=== PATIENT | female | born 1945 | race Caucasian/White ===

== ENCOUNTER 2021-07-24 22:57 | Observation (INO) | payer OTHER ==
--- OUTSIDE RECORDS SUMMARY | 2021-07-24 23:00 | XMS REPORT | Continuity of Care Document ---
:1945 Author Organization [facility] t Address [address] [place] [address] Care Team Providers Name Role Phone Olivia Last Attending Clinician Unavailable Page Attending Clinician Unavailable RADHA Attending Clinician Unavailable RADHA Admitting Clinician Unavailable Payers Payer Name Policy Type Policy Number Effective Date Expiration Date S ource Problems This patient has no known problems. Allergies, Adverse Reactions, Alerts Allergy Allergy Status Severity Reaction(s) Onset Inactive Treating Comm ents Source Name Type Date Date Clinician opioids Adverse Active difficulty [facility] beathing/Lg. Ivette kes - fluid filled Jose mercedes [facility] Losartan Adverse Active rash [facility] Medications Ordered Filled Start Stop Current Ordering Indication Dosage Frequency Signature Comments Components Source Medication Medication Date Date Medication? Clinician (SIG) Name Name Amlodipine Amlodipine 2020-0 Yes Angelica [address] [facility] Besylate Besylate 2-07 Millender Ivette kes - 00:00: [facility] Olmesartan Olmesartan 2018-05 Yes Angelica [address] [facility] Medoxomil Medoxomil 0-25 Millender [facility] Ciprofloxac Ciprofloxac Yes Angelica [address] [facility] in HCl in HCl [facility] Triamcinolo Triamcinolo Yes Angelica [address] [facility] ne ne Millender applicatio Luke s - Acetonide Acetonide n to [facility] affected l [facility] Calcium Calcium Yes Angelica [address] [facility]ender [facility] Ipratropium Ipratropium Yes Angelica USE [address] [facility] [place] Millender SPRAYS Ivette kes - INTO EACH Memoria NOSTRIL 4 l TIMES A Outpati DAY ent NEEDED FOR Clinics NASAL DRAINAGE Telmisartan Telmisartan Yes Angelica 1/[address] [facility] Immunizations Ordered Filled Immunization Date Status Comments [facility] e Immunization Name Name FLUZONE HIGH DOSE FLUZONE HIGH DOSE 2019-02-[address] [facility] OVER 65 OVER 65 00:00:00 [facility] Procedures This patient has no known procedures. Encounters Start End Encounter Admission Attending Care Care Encounter Source Date/Time Date/Time Type Type Clinicians Facility Department ID 2021-06-01 Outpatient Last, [facility] [id number] [facility] 13:21:10 Hero [id number] [facility] 2021-06-01 [facility] Ber[facility] [id number] [facility] 13:20:35 Hero [id number] [facility] 2021-06-01 [facility] [id number] [facility] [address] 13:08:42 [id number] [facility] 2021-06-01 [facility] [id number] [facility] [address] 13:06:36 [id number] [facility] 2021-06-01 Outpatient Sotoender, [facility] [id number] [facility] [address] 11:36:32 Angelica [id number] [facility] 2021-06-01 Outpatient Page, [facility] [id number] 11:27:34 Angelica [id number] [facility] 2021-06-01 Outpatient Page, [facility] [id number] 11:06[facility]28 Angelica [id number] [facility] 2021-02-24 2021-02-24 Outpatient [facility] [id number] [place] 05:11:00 05:11[place]00 [place] [id number] [facility] 2021-02-08 2021-02-08 [facility] [id number] [facility] 2021-02-03 2021-02-03 [facility] [id number] [facility] 2020-11-05 2020-11-05 [facility] [id number] [facility] 2020-11-03 2020-11-03 [facility] [id number] [facility] 2020-10-05 2020-10-05 [facility] [id number] 2020-07-15 2020-07-15 Outpatient [facility] [id number] [place] 05:57:00 05:57[place] [id number] [facility] 2020-07-13 2020-07-13 Outpatient [facility] [id number] [place] 03:09:00 03:09:[place] [id number] [facility] 2020-04-08 2020-04-08 Outpatient [facility] [id number] [place] 03:10:00 03:10:[place] [id number] [facility] 2020-04-07 2020-04-07 Outpatient [facility] [id number] [place] 11:57:00 11:57:[place] [id number] [facility] 2020-02-18 2020-02-18 [facility] [id number] [facility] 2020-02-09 2020-02-09 [facility] [id number] [facility] 2019-12-16 2019-12-16 [facility] [id number] 15:00:00 15:00:[address] [facility] Clin[facility] 2019-12-11 2019-12-11 [facility] [id number] 16[facility]20:00 16:20:00 [facility] Medicine Outpati ent Clinics 2019-12-11 2019-12-11 [facility] [id number] 11:23:00 11:23:[address] [facility] Clin[facility] 2019-11-03 2019-11-03 [facility] [id number] 02:27:00 02:27:[address] [facility] Clin[facility] 2019-10-27 2019-10-27 [facility] [id number] 11:58:00 11:58:[address] [facility] Clin[facility] 2019-10-24 2019-10-24 [facility] [id number] [address] 16[facility]00:00 16:00:[address] [facility] Clinics 2019-10-13 2019-10-13 Outpatient NENO [facility] [id number] [place] 10:14:00 10:14:[place] [id number] da [facility] h Program 2019-10-05 2019-10-05 [facility] [id number] 22:14:00 22:14:[address] [facility] Medicine Outpat[facility] Clinics 2019-10-03 2019-10-03 [facility] [id number] 08:00:00 08:00:00 [facility] Medicine Outpati ent Clinics 2019-10-01 2019-10-01 Outpatient FERGUSON_MADHU [facility]OP [facility] [id number] [place] 04:27:00 04:27:[place] [id number] [facility] 2019-10-01 2019-10-01 Outpatient [facility]ERGUSON_MADHU [facility]OP [facility] [id number] [place] 04:27:00 04:27:[place] [id number] [facility] 2019-06-13 2019-06-13 [facility] [id number] 15:45:00 15:45:00 [facility] Medicine l Medicine Outpati ent Clinics 2019-02-28 2019-02-28 [facility] [id number] [facility] 16:00:00 16:00:00 [facility] Medicine l Medicine Outpati ent Clinics 2018-11-01 2018-11-01 [facility] [id number] 13:20:00 13:20:00 [facility] Medicine l Medicine Outpati ent Clinics 2018-08-20 2018-08-20 [facility] [id number] 15:02:00 15:02:00 [facility] Medicine l Medicine Outpati ent Clinics 2018-08-20 2018-08-20 [facility] [id number] 12:02:00 12:02:00 [facility] Medicine l Medicine Outpati ent Clinics 2018-06-11 2018-06-11 [facility] [id number] 20:42:00 20:42:00 [facility] Medicine l Medicine Outpati ent Clinics 2018-06-07 2018-06-07 [facility] [id number] 09:51:00 09:51:00 [facility] Medicine l Medicine Outpati ent Clinics 2018-06-06 2018-06-06 [facility] [id number] 15:00:00 15:00:00 [facility] Outpati ent Clinics 2017-12-25 2017-12-25 [facility] [id number] [address] 13:00:00 13:00:00 [facility] Outpati ent Clinics 2017-10-10 2017-10-10 [facility] [id number] 14:30:00 14:30:00 [facility] Outpati ent Clinics 2017-09-27 2017-09-27 [facility] [id number] 08:24:00 08:24:00 [facility] Outpat[facility] ent Clinics 2017-09-25 2017-09-25 [facility] [id number] 14:00:00 14:00:00 [facility] Results This patient has no known results.
--- NOTE | 2021-07-25 00:19 | ER ---
Nurse's Notes [facility] Name: Asiya Cabrales Age: 75 yrs Sex: Female : 1945 Arrival Date: 07/24/2021 Time: 23:02 Bed 6 Private MD: Hero Last Diagnosis: Hypertensive urgency;Dizziness Presentation: 07/24 23:13 Chief complaint: Patient states: Dizzy, headache - High blood pressure X 3 DAYS. ld1 Coronavirus screen: At this time, the client does not indicate any symptoms associated with coronavirus-19. Ebola Screen: No symptoms or risks identified at this time. Initial Sepsis Screen: Does the patient meet any 2 criteria? No. Patient's initial sepsis screen is negative. Does the patient have a suspected source of infection? No. Patient's initial sepsis screen is negative. Risk Assessment: Do you want to hurt yourself or someone else? Patient reports no desire to harm self or others. Onset of symptoms was July 24, 2021. 23:13 Method Of Arrival: Ambulatory ld1 23:13 Acuity: VANNA 3 ld1 Triage Assessment: 23:17 General: Appears in no apparent distress. comfortable, Behavior is calm, cooperative, ld1 appropriate for age. Pain: Denies pain. EENT: No signs and/or symptoms were reported regarding the EENT system. Neuro: Level of Consciousness is awake, alert, obeys commands, Oriented to person, place, time, situation, Appropriate for age. Cardiovascular: Reports None Capillary refill < 3 seconds Patient's skin is warm and dry. Rhythm is regular. Respiratory: Airway is patent Respiratory effort is even, unlabored, Respiratory pattern is regular, symmetrical. GI: Abdomen is flat, non-distended. : No signs and/or symptoms were reported regarding the genitourinary system. Derm: No signs and/or symptoms reported regarding the dermatologic system. Musculoskeletal: No signs and/or symptoms reported regarding the musculoskeletal system. 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 - Social history:: Smoking status: Patient denies any tobacco usage or history of. Patient/guardian denies using alcohol. Screenin/21 00:30 Abuse screen: Denies threats or abuse. Denies injuries from another. Nutritional as6 screening: No deficits noted. Tuberculosis screening: No symptoms or risk factors identified. Fall Risk None identified. Assessment: 00:29 General: Appears in no apparent distress. comfortable, Behavior is calm, cooperative. as6 Pain: Denies pain. Neuro: Level of Consciousness is awake, alert, obeys commands, Oriented to person, place, time, situation. Cardiovascular: Capillary refill < 3 seconds Patient's skin is warm and dry. Respiratory: Airway is patent Trachea midline Respiratory effort is even, unlabored, Respiratory pattern is regular, symmetrical. Vital Signs: 07/24 23:13 BP 209 / 105; Pulse 93; Resp 18; Temp 98.1(TE); Pulse Ox 99% on R/A; Weight 77.11 kg; ld1 Height 5 ft. 6 in. (167.64 cm); Pain 0/10; 07/25 00:30 BP 174 / 102; Pulse 73; Resp 19 S; Pulse Ox 97% on R/A; as6 07/24 23:13 Body Mass Index 27.44 (77.11 kg, 167.64 cm) ld1 ED Course: 07/24 23:02 Patient arrived in ED. es 23:02 Hero Last DO is Private Physician. es 23:06 Todd Laboy DO is Attending Physician. ms3 23:17 Triage completed. ld1 23:17 Arm band placed on right wrist. ld1 23:40 Patrick Seymour, BEBO is Primary Nurse. as6 07/25 00:15 Missed attempt(s): 22 gauge in right forearm. Bleeding controlled, band aid applied, as6 catheter tip intact. 00:18 Ajay Landon MD is Hospitalizing Provider. ms3 00:20 Inserted saline lock: 22 gauge in right hand, using aseptic technique. Blood collected. as6 00:27 SARS-COV-2 RT PCR Sent. as6 00:27 Basic Metabolic Panel Sent. as6 00:27 CBC with Diff Sent. as6 00:27 Troponin HS Sent. as6 00:31 Placed in gown. Bed in low position. Call light in reach. Side rails up X2. Adult w/ as6 patient. towel sewer on. Pulse ox on. NIBP on. 00:31 No provider procedures requiring assistance completed. Patient admitted, IV remains in as6 place. 08:36 Primary Nurse role handed off by Patirck Seymour, BEBO calero Administered Medications: 00:17 Drug: Norvasc (amlodipine) 5 mg Route: PO; as6 01:04 Follow up: Response: No adverse reaction as6 Outcome: 00:18 Decision to Hospitalize by Provider. ms3 00:31 Admitted to ER Hold. Please see [facility] for further documentation. as6 00:31 Condition: stable 00:31 Instructed on the need for admit. 09:58 Patient left the ED. bazan Signatures: Misty Andres, Todd Fowler DO DO ms3 Ibis Marrufo RN RN ld1 Patrick Seymour RN RN as6 Au-Stager, BEBO Serrano RN bazan Corrections: (The following items were deleted from the chart) 07/24 23:18 23:17 Allergies: No Known Allergies; ld1 ld1
--- NOTE | 2021-07-25 00:19 | EDPHYS ---
Physician Documentation [facility] Name: Asiya Cabrales Age: 75 yrs Sex: Female : 1945 Arrival Date: 07/24/2021 Time: 23:02 Bed 6 Private MD: Berhane [facility] ED Physician Todd Laboy HPI: 07/25 01:16 This 75 yrs old Female presents to ER via Ambulatory with complaints of High Blood ms3 Pressure. 01:16 The patient has elevated blood pressure and discovered this at home, with a home ms3 device. Onset: The symptoms/episode began/occurred today. Modifying factors:. Associated signs and symptoms: The patient has no apparent associated signs or symptoms. 35-year-old female with past medical history of hypertension presents for hypertension. Patient states she was seen at an emergency department on Sunday and work-up was negative at the time. Patient denies pain at this time. Patient denies alleviating or inciting factors. Patient denies fevers, chills, nausea, vomiting, diaphoresis, chest pain, shortness of breath.. 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 - Social history:: Smoking status: Patient denies any tobacco usage or history of. Patient/guardian denies using alcohol. ROS: 07/25 01:16 Constitutional: Negative for fever, and chills. ENT: Negative for injury, pain, and ms3 discharge, Neck: Negative for injury, pain, and swelling, Cardiovascular: Negative for chest pain, and palpitations. Respiratory: Negative for shortness of breath, cough, wheezing, and pleuritic chest pain, Abdomen/GI: Negative for abdominal pain, nausea, vomiting, diarrhea, and constipation, MS/Extremity: Negative for injury and deformity, Skin: Negative for injury, rash, and discoloration, Neuro: Negative for headache, weakness, numbness, tingling. All other systems are negative. Exam: 00:06 ECG was reviewed by the Attending Physician. ms3 01:16 Constitutional: This is a well developed, well nourished patient who is awake, alert, ms3 and in no acute distress. Head/Face: Normocephalic, atraumatic. Eyes: Pupils equal round and reactive to light, extra-ocular motions intact. Lids and lashes normal. Conjunctiva and sclera are non-icteric and not injected. Periorbital areas with no swelling, redness, or edema. ENT: Nares patent. No nasal discharge, no septal abnormalities noted. Tympanic membranes are normal and external auditory canals are clear. Oropharynx with no redness, swelling, or masses, exudates, or evidence of obstruction, uvula midline. Mucous membranes moist. Neck: Trachea midline, no cervical lymphadenopathy. Supple, full range of motion without nuchal rigidity, or vertebral point tenderness. No Meningismus. Chest/axilla: Normal chest wall appearance and motion. Nontender with no deformity. Cardiovascular: Regular rate and rhythm with a normal S1 and S2. No gallops, murmurs, or rubs. Normal PMI, no JVD. No pulse deficits. Respiratory: Lungs have equal breath sounds bilaterally, clear to auscultation and percussion. No rales, rhonchi or wheezes noted. No increased work of breathing, no retractions or nasal flaring. Abdomen/GI: Soft, non-tender, with normal bowel sounds. No distension or tympany. No guarding or rebound. No evidence of tenderness throughout. Skin: Warm, dry with normal turgor. Normal color with no rashes, no lesions, and no evidence of cellulitis. MS/ Extremity: Pulses equal, no cyanosis. Neurovascular intact. Full, normal range of motion. Vital Signs: 07/24 23:13 BP 209 / 105; Pulse 93; Resp 18; Temp 98.1(TE); Pulse Ox 99% on R/A; Weight 77.11 kg; ld1 Height 5 ft. 6 in. (167.64 cm); Pain 0/10; 07/25 00:30 BP 174 / 102; Pulse 73; Resp 19 S; Pulse Ox 97% on R/A; as6 07/24 23:13 Body Mass Index 27.44 (77.11 kg, 167.64 cm) ld1 MDM: 07/24 23:34 ED course: Discussed patient's elevated blood pressure with Dr Dickey and he would like ms3 patient admitted to the hospitalist service. . 23:45 Patient medically screened. ms3 07/25 01:11 Differential diagnosis: hypertensive crisis, Malignant HTN. Data reviewed: vital signs, ms3 nurses notes, lab test result(s), EKG, radiologic studies. Counseling: I had a detailed discussion with the patient and/or guardian regarding: the historical points, exam findings, and any diagnostic results supporting the discharge/admit diagnosis, lab results, radiology results, the need for further work-up and treatment in the hospital. ED course: Discussed case with MAHIN Guzmán, and he accepts patient to Dr Landon.. 07/24 23:49 Order name: COVID-19 SARS RT PCR (Document "Date of Onset" if Symptomatic) ms3 07/24 23:50 Order name: Basic Metabolic Panel; Complete Time: 01:19 ms3 07/24 23:50 Order name: CBC with Diff; Complete Time: 01:19 ms3 07/24 23:50 Order name: Troponin HS; Complete Time: 01:19 ms3 07/24 23:50 Order name: SARS-COV-2 RT PCR EDMS 07/25 04:54 Order name: Troponin High Sensitivity EDID 07/24 23:50 Order name: EKG; Complete Time: 23:50 ms3 07/24 23:50 Order name: Cardiac monitoring; Complete Time: 23:56 ms3 07/24 23:50 Order name: EKG - Nurse/Tech; Complete Time: 00:26 ms3 07/24 23:50 Order name: IV Saline Lock; Complete Time: 00:27 ms3 07/24 23:50 Order name: Labs collected and sent; Complete Time: 00:27 ms3 07/24 23:50 Order name: O2 Per Protocol; Complete Time: 23:56 ms3 07/25 04:54 Order name: Thyroid Stimulating Hormone EDID 07/24 23:50 Order name: O2 Sat Monitoring; Complete Time: 23:56 ms3 EC:06 Rate is 76 beats/min. Rhythm is regular. QRS [place] is Normal. PA interval is normal. ms3 Clinical impression: NSR w/ Non-specific ST/T Changes. Interpreted by me. Administered Medications: 00:17 Drug: Norvasc (amlodipine) 5 mg Route: PO; as6 01:04 Follow up: Response: No adverse reaction as6 Disposition Summary: 07/25/21 00:18 Hospitalization Ordered Hospitalization Status: Observation ms3 Provider: Ajay Landon ms3 Condition: Stable ms3 Problem: new ms3 Symptoms: are unchanged ms3 Bed/Room Type: Standard ms3 Location: [facility] ER HOLD(07/25/21 00:28) cg Room Assignment: ERHOLD-(07/25/21 00:28) cg Diagnosis - Hypertensive urgency ms3 - Dizziness ms3 Forms: - Medication Reconciliation Form ms3 - SBAR form ms3 Signatures: Dispatcher [employer] Carmen Arceo RN RN cg Todd Laboy DO DO ms3 Ibis Marrufo RN RN ld1 Patrick Seymour RN RN as6 Corrections: (The following items were deleted from the chart) 07/24 23:18 23:17 Allergies: No Known Allergies; ld1 ld1 07/25 00:28 00:18 Telemetry/MedSurg (observation) ms3 cg 00: 00:18 ms3 cg
[2021-07-25 00:53] LABS: Absolute Lymphocytes (CBC) 1.6 K/uL (0.7-4.9); Hematocrit 40.3 % (36.0-45.0); Lymphocytes % 24.2 % (15.3-44.8); MPV 7.8 fL (7.6-11.3); RBC Red Blood Cell Count 4.32 M/uL (3.86-4.86)
[2021-07-25 01:06] LABS: Troponin High Sensitivity 6.2 pg/mL (<58.9)
[2021-07-25 01:09] LABS: Potassium 4.2 mmol/L (3.5-5.1)
--- NOTE | 2021-07-25 01:20 | P.HP ---
Certification for Inpatient Patient admitted to: Observation With expected LOS: <2 Midnights Patient will require the following post-hospital care: None Practitioner: I am a practitioner with admitting privileges, knowledge of patient current condition, hospital course, and medical plan of care. Services: Services provided to patient in accordance with Admission requirements found in Title 42 Section 412.3 of the Code of Federal Regulations Patient History Date of Service: 07/25/21 Reason for admission: Hypertensive urgency History of Present Illness: 75-year-old female with history of hypertension presents emergency department with elevated blood pressure for the past 3 days. Patient was seen at another ER recently for similar complaint given hydralazine x2 and discharged home without adjustment to her medication. Patient currently taking telmisartan 40 mg daily her pressures been in the 200 to high 190 systolic at home the past 2 3 days. Patient denies any specific symptoms just reports that she feels unwell. Patient was evaluated in the emergency department her labs were unremarkable initial troponin is negative cardiology was consulted while patient was in the emergency department who recommended addition of amlodipine 5 mg p.o. daily to her current regimen admission under observation for hypertensive urgency. - Past Medical/Surgical History -: Hypertension -: SAH -: Hysterectomy -: Cholecystectomy -: Right breast mass removal Psychosocial/ Personal History: Patient lives at home with her - Family History Mother -: Stroke Father -: Heart disease Brother -: Diabetes - Social History Smoking Status: Never smoker Alcohol use: No CD- Drugs: No Caffeine use: Yes Place of Residence: Home Review of Systems 10-point ROS is otherwise unremarkable General: Malaise Physical Examination - Physical Exam General: Alert, In no apparent distress, Oriented x3 HEENT: Atraumatic, PERRLA, Mucous membr. moist/pink, EOMI, Sclerae nonicteric Neck: Supple, 2+ carotid pulse no bruit, No LAD, Without JVD or thyroid abnormality Respiratory: Clear to auscultation bilaterally, Normal air movement Cardiovascular: Regular rate/rhythm, Normal S1 S2 Gastrointestinal: Normal bowel sounds, No tenderness Musculoskeletal: No tenderness Integumentary: No rashes Neurological: Normal gait, Normal speech, Normal strength at 5/5 x4 extr, Normal tone, Normal affect Lymphatics: No axilla or inguinal lymphadenopathy - Studies Laboratory Data (last 24 hrs) 07/25/21 00:23: WBC 6.50, Hgb 13.5, Hct 40.3, Plt Count 284 07/25/21 00:23: Sodium 134 L, Potassium 4.2, BUN 14, Creatinine 0.66, Glucose 105 Assessment and Plan - Plan Assessment: Hypertensive urgency underlying primary hypertension Plan: Hypertensive urgency underlying primary hypertension: Cardiology was consulted while patient was in the emergency department recommend addition of amlodipine 5 mg p.o. daily, will trend troponins. Monitor on telemetry. Appreciate additional input from cardiology anticipate discharge tomorrow. DVT PPX: Lovenox Code status: Full Discharge Plan: Home Plan to discharge in: 24 Hours - Advance Directives Does patient have a Living Will: No Does patient have a Durable POA for Healthcare: No - Code Status/Comfort Care Code Status Assessed: Yes (Full) Critical Care: No Time Spent Managing Pts Care (In Minutes): 55
[2021-07-25] MEDS ORDERED: ONDANSETRON 4 MG/2 ML VIAL IV PRN (01:43)
[2021-07-25 01:47] VITALS: BMI 27.4
[2021-07-25 04:54] LABS: Thyroid Stimulating Hormone 2.78 uIU/mL (0.360-3.740); Troponin High Sensitivity 9.9 pg/mL (<58.9)
[2021-07-25 08:16] VITALS: BP 132/57; TEMP 98.6
--- NOTE | 2021-07-25 08:20 | EKG ---
Test Date: 2021-07-25 Test Time: 00:06:06 Extracorporeal Technician: MEASUREMENT RESULTS: Intervals: Rate: 76 ME: 156 QRSD: 82 QT: 390 QTc: 438 Thayer: P: 45 ME: 156 QRS: -20 T: 8 INTERPRETIVE STATEMENTS: Normal sinus rhythm Possible Left atrial enlargement Left ventricular hypertrophy Nonspecific T wave abnormality Abnormal ECG No previous ECG available for comparison Electronically Signed On 07-25-21 08:19:19 CDT by Fish Hendricks
[2021-07-25] MEDS ORDERED: ENOXAPARIN 40 MG/0.4 ML SQ ONE (08:31)
[2021-07-25] MEDS ORDERED: AMLODIPINE 5 MG TAB ONE ×2 (08:31)
[2021-07-25] MEDS ORDERED: VALSARTAN 80 MG TAB ONE (08:33)
[2021-07-25] MEDS ORDERED: VALSARTAN 80 MG TAB PO SCH (09:00)
[2021-07-25] MEDS ORDERED: ENOXAPARIN 40 MG/0.4 ML SQ SCH (09:00)
[2021-07-25] MEDS ORDERED: AMLODIPINE 5 MG TAB PO SCH (09:00)
[2021-07-25 10:18] VITALS: O2SAT 97
--- NOTE | 2021-07-28 13:02 | CON ---
Date of Consultation: 07/25/2021 Reason For Consultation: Admitted to Dr. Landon on 07/25/2021 with a hypertensive crisis. I saw the patient on 07/25/2021. History Of Present Illness: Ms. Cabrales is 75, known to have a history of subarachnoid hemorrhage and hypertension. Her subarachnoid hemorrhage was not related to hypertension. She has been fairly well controlled on telmisartan 40 mg daily, but her and she was very concerned. By the ti me I saw her, she had received Diovan 80 and Norvasc 5 mg in addition to her telmisartan. Her blood pressure was down to 148/74. She denied chest pain. Denied nausea, vomiting, PND, orthopnea, pedal edema, palpitations, or syncope. Review of Systems: Positive for possible sleep apnea. Social History: Negative. Family History: Negative. Medications: At home include telmisartan 40 mg daily. Allergies: SHE IS ALLERGIC TO OPIOIDS AND MORPHINE. Physical Examination: Vital Signs: Stable, afebrile. HEENT: Negative. Neck: Supple with no bruit. Chest: Clear. Cardiac: Revealed regular rhythm and rate. No murmurs, gallops, or rubs. Abdomen: Benign. Extremities: Revealed no clubbing, cyanosis, or edema. Diagnostic Data: Normal. Impression And Plan: Hypertension. I agree with adding Diovan and Norvasc to her telmisartan. She may need diuretic as well. She may need renal Doppler. She has an appointment in my office on the 07 05. I think a sleep study may be indicated as well. I will see her in the office after she goes ho me on the and decide further therapy. NB/MODL Voice ID: [id number] Report ID: [id number]
== END 2021-07-25 09:58 | disposition home or self-care (01) ==
LOC: ER 22:57 → ERHOLD 07-25 01:13
PROVIDERS: ADMIT Hospitalist; ATTEND Hospitalist
DX: I16.0 Hypertensive urgency (principal); I10 Essential (primary) hypertension; Z20.822 Contact with and (suspected) exposure to COVID-19; Z88.6 Allergy status to analgesic agent; Z90.49 Acquired absence of other specified parts of digestive tract; Z90.710 Acquired absence of both cervix and uterus; Z82.49 Family history of ischemic heart disease and other diseases of the circulatory system; Z82.3 Family history of stroke; Z83.3 Family history of diabetes mellitus
CPT/HCPCS: 93005; 85025; 80048; 36415; 84443; 84484 ×2; 99285; U0003; G0378 ×2; J1650